=== PATIENT | female | born 1950 | race Caucasian/White ===

== ENCOUNTER → 2016-12-16 | Outpatient (CLI) | payer BC, OTHER ==
[~2016-12-16] MED LIST: BACTRIM DS TAB1 EACH PO; COLAZAL750 M1 PO; IMURAN 50MG TAB50 M1 PO; MECLIZINE HCL25 M1 PO; NORCO 5-325 TA1 EACH PO; NORFLEX100 MG PO; PHENERGAN25 MG RE; PYRIDIUM200 MG PO; TOPAMAX50 MG PO; TRAMADOL 50 MG50 MG PO; VALIUM5 MG PO; XANAX 0.25 MG0.25 MG PO
== END ==
LOC: RAD 11:33
DX: Z12.31 Encounter for screening mammogram for malignant neoplasm of breast (principal)

== ENCOUNTER → 2016-12-22 | Outpatient (CLI) | payer BC, OTHER | LOC: RAD 01:25 | DX: R92.8 Other abnormal and inconclusive findings on diagnostic imaging of breast (principal) ==

== ENCOUNTER → 2018-01-16 | Outpatient (CLI) | payer BC, OTHER | LOC: RAD 10:38 | DX: Z12.31 Encounter for screening mammogram for malignant neoplasm of breast (principal) ==